=== PATIENT | female | born 1985 | race Caucasian/White ===

== ENCOUNTER 2018-03-15 07:36 | Inpatient (IN) | payer BC ==
[2018-03-15] MEDS ORDERED: Oxytocin in LR* 20 UNITS/1,000 ML BAG IVPB SCH (08:00)
[2018-03-15 08:46] LABS: Hematocrit 31 % (35-47); Hemoglobin 10.1 g/dl (12.0-16.0); Mean Corpuscular HGB Conc 32 g/dl (31-36); Mean Corpuscular Hemoglobin 24 pg (27-31); Mean Corpuscular Volume 74 fL (80-97); Mean Platelet Volume 8.5 um3 (7.4-10.4); Platelet Count 279 10^3/ul (150-450); Red Cell Distribution Width 16 % (10.5-15); White Blood Count 12.8 10^3/ul (3.5-10.8)
[2018-03-15 09:05] LABS: ABS Basophils 0.1 10^3/ul (0-0.2); ABS Eosinophils 0.1 10^3/ul (0-0.6); ABS Lymphocytes 2.4 10^3/ul (1.0-4.8); ABS Monocytes 0.8 10^3/ul (0-0.8); ABS Neutrophils 9.5 10^3/ul (1.5-7.7); ABS Nucleated RBC 0 10^3/ul; Eosinophil % 0.6 % (0-6); Lymphocyte % 18.9 % (25-47); Nucleated Red Blood Cells % 0.1
[2018-03-15] MEDS ORDERED: OBEPIDURAL* 250 ML EPIDURAL ONE (11:44)
[2018-03-15] MEDS ORDERED: Phenylephrine IV* 40 MCG/ML 10 ML SYRINGE IV PUSH PRN (12:30)
[2018-03-15] MEDS ORDERED: Sodium Citrate/Citric Acid* 15 ML UDC PO PRN (12:30)
[2018-03-15] MEDS ORDERED: Famotidine TAB* 20 MG PO PRN (12:30)
[2018-03-15] MEDS ORDERED: OBEPIDURAL* 250 ML EPIDURAL SCH (13:00)
[2018-03-15] MEDS ORDERED: Heparin VIAL(*) 5000 UNITS/ML VIAL (FIVE THOUSAND) SUBCUT SCH (14:00)
[2018-03-15] MEDS ORDERED: Glycerin ADULT SUPP PR PRN (15:08)
[2018-03-15] MEDS ORDERED: Dibucaine 1% 28.35 GM TUBE PR PRN (15:08)
[2018-03-15] MEDS ORDERED: Acetaminophen TAB* 325 MG PO PRN (15:08)
[2018-03-15] MEDS ORDERED: Witch Hazel PAD* JAR TOPICAL PRN (15:08)
[2018-03-15] MEDS ORDERED: diPHENhydraMINE PO* 25 MG ONE (16:09)
[2018-03-15] MEDS ORDERED: diPHENhydraMINE PO* 50 MG PO ONE (16:15)
[2018-03-15] MEDS ORDERED: Simethicone TAB* 80 MG TAB.CHEW PO SCH (17:30)
[2018-03-15] MEDS: Docusate CAP* 100 MG PO SCH (20:54)
[2018-03-15] MEDS: Ibuprofen TAB* 600 MG PO PRN (22:17)
[2018-03-16 07:04] LABS: ABS Basophils 0.1 10^3/ul (0-0.2); ABS Eosinophils 0.1 10^3/ul (0-0.6); ABS Lymphocytes 2.8 10^3/ul (1.0-4.8); ABS Monocytes 1.1 10^3/ul (0-0.8); ABS Neutrophils 14.7 10^3/ul (1.5-7.7); ABS Nucleated RBC 0 10^3/ul; Eosinophil % 0.5 % (0-6); Hematocrit 32 % (35-47); Hemoglobin 10.4 g/dl (12.0-16.0); Mean Corpuscular HGB Conc 32 g/dl (31-36); Mean Corpuscular Hemoglobin 24 pg (27-31); Mean Corpuscular Volume 75 fL (80-97); Mean Platelet Volume 8.5 um3 (7.4-10.4); Nucleated Red Blood Cells % 0; Platelet Count 299 10^3/ul (150-450); Red Blood Count 4.34 10^6/ul (4.0-5.4); Red Cell Distribution Width 16 % (10.5-15); White Blood Count 18.9 10^3/ul (3.5-10.8)
[2018-03-16] MEDS: Docusate CAP* 100 MG PO SCH ×3 (08:12→21:19)
[2018-03-16] MEDS: Ibuprofen TAB* 600 MG PO PRN ×2 (08:12→16:02)
[2018-03-16] MEDS ORDERED: Ferrous Gluconate TAB* 324 MG TAB PO SCH (09:00)
[2018-03-17] MEDS: Docusate CAP* 100 MG PO SCH ×2 (08:10→13:57)
[2018-03-17] MEDS: Ibuprofen TAB* 600 MG PO PRN (08:10)
[2018-03-17 11:06] VITALS: BP 108/66
== END 2018-03-17 14:40 | disposition home or self-care (01) | DRG 560 ==
LOC: MCHOBOUT 07:36 → MCHOB 08:17
PROVIDERS: ADMIT Obstetrics & Gynecology; ATTEND Obstetrics & Gynecology
PROC: 10907ZC Drainage of Amniotic Fluid, Therapeutic from Products of Conception, Via Natural or Artificial Opening (ICD-10-PCS; principal; 2018-03-15)
PROC: 3E033VJ Introduction of Other Hormone into Peripheral Vein, Percutaneous Approach (ICD-10-PCS; 2018-03-15)
PROC: 10E0XZZ Delivery of Products of Conception, External Approach (ICD-10-PCS; 2018-03-15)
PROC: 4A1HXCZ Monitoring of Products of Conception, Cardiac Rate, External Approach (ICD-10-PCS; 2018-03-15)
PROC: 0KQM0ZZ Repair Perineum Muscle, Open Approach (ICD-10-PCS; 2018-03-15)
DX: O48.0 Post-term pregnancy (principal); Z3A.40 40 weeks gestation of pregnancy; Z37.0 Single live birth; Z88.7 Allergy status to serum and vaccine; O70.1 Second degree perineal laceration during delivery
CPT/HCPCS: 36415; 85025; 86850; 86900; 86901; A9270-GY